=== PATIENT | male | born 1965 | race Caucasian/White ===

== ENCOUNTER 2019-03-04 13:24 | Emergency (ER) | payer OTHER ==
[2019-03-04 13:40] VITALS: BP 159/94; PULSE 61; TEMP 98.3; BMI 26.3
--- NOTE | 2019-03-04 14:23 | PDOC ---
History of Present Illness - General Chief Complaint: Respiratory Stated Complaint: COUGH, SORE THROAT Time Seen by Provider: 03/04/19 13:53 History Source: Patient Exam Limitations: No Limitations - History of Present Illness Initial Comments: 03/04/19 14:23 53y M hx of htn, thyroid disease presenst with sore thoat, cough, diarrhea. pt states he went to the last week, spent a week there travelling and developed some mild diarrhea that has been improving without associated fever/chills, abd pain, blood/melena.. it is essentially resolved. Pt does note a cough productive of yellowish sputum and a mild sore throat. no fever/chills. pt denies associated nausea or vomting, headache, neck pain. pt does note some mild cp when he coughs. no associated lund, hemoptysis or leg swelling. Past History - Past Medical History Allergies/Adverse Reactions: Allergies Allergy/AdvReac Type Severity Reaction Status Date / Time No Known Allergies Allergy Verified 03/04/19 13:32 Home Medications: Ambulatory Orders Levothyroxine [Synthroid -] 100 mcg PO DAILY 03/04/19 Nebivolol HCl [Bystolic] 5 mg PO DAILY 03/04/19 COPD: No HTN: Yes Thyroid Disease: Yes - Suicide/Smoking/Psychosocial Hx Smoking History: Never smoked Have you smoked in the past 12 months: No Information on smoking cessation initiated: No Hx Alcohol Use: (occasional) Review of Systems - Review of Systems Able to Perform ROS?: Yes Comments:: 03/04/19 14:25 Constitutional - no reported Fever, Chills, HEENT: +sore throat no reported vision changes, Respiratory: no reported sob, hemoptysis Cardiac: +cough no reported chest pain, palpitations, light headedness, leg swelling Abd/GI: +diarrhea no reported abd pain, nausea, vomiting, blood per rectum, melena, : no reported dysuria, frequency, discharge Musculskelatal - no reported back pain, joint swelling skin - no reported bruising, erythema, rash neurological: no reported headache, numbness, focal weakness, tingling, ataxia, hematologic: no reported easy bruising, easy bleeding *Physical Exam - Vital Signs Last Vital Signs Temp Pulse Resp BP Pulse Ox 98.3 F 61 18 159/94 98 03/04/19 13:24 03/04/19 13:24 03/04/19 13:24 03/04/19 13:24 03/04/19 13:24 - Physical Exam Comments: 03/04/19 14:26 GENERAL: The patient is awake, alert, and fully oriented, Nontoxic - in no acute distress. HEAD: Normocephalic, atraumatic. EYES: extraocular movements intact, sclera anicteric, conjunctiva clear. ENT: Normal voice, Moist mucous membranes, no exudates, mild erythema, metric pharynx NECK: Normal range of motion, supple LUNGS: Breath sounds equal, clear to auscultation bilaterally. No wheezes, no rhonchi, no rales. HEART: Regular rate and rhythm, normal S1 and S2 without murmur, rub or gallop. ABDOMEN: Soft, nontender, n No guarding, no rebound. . No CVA tenderness EXTREMITIES: Normal range of motion, NEUROLOGICAL: No facial assymetry, Normal speech, moving all 470 spontaneously and symmetrically, normal gait PSYCH: Normal mood, normal affect. SKIN: Warm, Dry, normal turgor, Medical Decision Making - Medical Decision Making 03/04/19 14:26 Suspect viral syndrome, we'll obtain a rapid strep, chest x-ray to rule out pneumonia Although patient has a history of travel, symptoms are not typical or suggestive of pulmonary embolism in light of his other symptoms suggestive of a viral illness 03/04/19 15:47 xray negative strep neg will dc with supportive care at home I discussed the physical exam findings, ancillary test results and final diagnoses with the patient. I answered all of the patient's questions. The patient was satisfied with the care received and felt comfortable with the discharge plan and treatment plan. The patient will call their primary care physician within 24 hours to arrange follow-up and will return to the Emergency Department with any new, persistent or worsening symptoms. *DC/Admit/Observation/Transfer Diagnosis at time of Disposition: Viral pharyngitis - Discharge Dispostion Disposition: HOME Condition at time of disposition: Improved Decision to Admit order: No - Referrals Referrals: [facility] [place] [Provider Group] - Patient Instructions Printed Discharge Instructions: DI for Viral Pharyngitis Additional Instructions: Return to the emergency department immediately with ANY new, persistent or worsening symptoms. Take Tylenol as needed for discomfort You MUST call and follow up with your doctor tomorrow for further evaluation of your symptoms. Results were discussed with you. Please make sure your doctor reviews the results of your emergency evaluation. - Post Discharge Activity
== END 2019-03-04 15:50 | disposition home or self-care (01) ==
LOC: FER 13:24
DX: J02.8 Acute pharyngitis due to other specified organisms (principal); I10 Essential (primary) hypertension; E07.9 Disorder of thyroid, unspecified
CPT/HCPCS: 71046-TC-FY; 87070; 87880; 99283-25